=== PATIENT | female | born 1960 | race Caucasian/White ===

== ENCOUNTER 2018-04-29 15:00 | Emergency (ER) | payer OTHER ==
[2018-04-29 15:17] VITALS: TEMP 98.3; BMI 27.4
[2018-04-29] MEDS ORDERED: ONDANSETRON 4 MG/2 ML VIAL ONE (15:21)
--- NOTE | 2018-04-29 15:21 | PDOC ---
History of Present Illness - General Chief Complaint: Syncope/Near Syncope Stated Complaint: VOMITING/SYNCOPE Time Seen by Provider: 04/29/18 15:21 Past History - Past Medical History Allergies/Adverse Reactions: Allergies Allergy/AdvReac Type Severity Reaction Status Date / Time No Known Allergies Allergy Verified 04/29/18 15:11 Home Medications: Ambulatory Orders Ranitidine HCl [Zantac] 150 mg PO HS 04/29/18 COPD: No GI Disorders: Yes (gerd) - Suicide/Smoking/Psychosocial Hx Smoking History: Never smoked Information on smoking cessation initiated: No Hx Alcohol Use: No Drug/Substance Use Hx: No Substance Use Type: None *Physical Exam - Vital Signs Last Vital Signs Temp Pulse Resp BP Pulse Ox 98.3 F 70 18 151/88 100 04/29/18 15:12 04/29/18 15:12 04/29/18 15:12 04/29/18 15:12 04/29/18 15:12
[2018-04-29] MEDS ORDERED: ONDANSETRON 4 MG/2 ML VIAL IVPUSH ONE (15:32)
[2018-04-29] MEDS ORDERED: SODIUM CHLORIDE 1,000 ML IV ONE (15:32)
[2018-04-29] MEDS ORDERED: FAMOTIDINE 20 MG/50 ML IVPB 20 MG/50 ML MG IVPB ONE ×2 (15:39→15:42)
[2018-04-29 15:42] LABS: BASO % 0.7 % (0-2.0); EOS % 1.2 % (0-4.5); HEMATOCRIT 39.1 % (32.4-45.2); HEMOGLOBIN 13.3 GM/dL (10.7-15.3); LYMPH % 47.5 % (8-40); MCH 30.5 pg (25.7-33.7); MCHC 33.9 g/dl (32.0-36.0); MEAN CELL VOLUME 89.7 fl (80-96); MEAN PLT VOLUME 8.5 fl (7.5-11.1); MONO % 7.5 % (3.8-10.2); NEUT % 43.1 % (42.8-82.8); PLATELET COUNT 267 K/MM3 (134-434); RBC 4.36 M/mm3 (3.60-5.2); RDW 13.6 % (11.6-15.6)
[2018-04-29 16:03] LABS: ANION GAP 7 MMOL/L (8-16); BILIRUBIN,TOTAL 0.4 mg/dL (0.2-1.0); BLOOD UREA NITROGEN 17 mg/dL (7-18); CALCIUM 8.9 mg/dL (8.5-10.1); CHLORIDE 108 mmol/L (98-107); CO2 27 mmol/L (21-32); CREATININE 0.9 mg/dL (0.55-1.02); GLUCOSE,RANDOM 102 mg/dL (74-106); LIPASE 56 U/L (73-393); POTASSIUM 3.4 mmol/L (3.5-5.1); SGOT/AST 22 U/L (15-37); SGPT/ALT 27 U/L (12-78); SODIUM 142 mmol/L (136-145); TOT PROT 7.4 g/dl (6.4-8.2)
[2018-04-29 16:06] LABS: ALK PHOS 86 U/L (45-117)
--- NOTE | 2018-04-29 16:16 | PDOC ---
History of Present Illness - General Chief Complaint: Syncope/Near Syncope Stated Complaint: VOMITING/SYNCOPE Time Seen by Provider: 04/29/18 15:21 History Source: Patient Exam Limitations: No Limitations - History of Present Illness Initial Comments: 04/29/18 16:10 Patient is a 57F with history of GERD here today complaining of passing out. Patient states that she went out to lunch with family today when she started feeling nauseated and not well. Patient walked outside where she started feeling week and leaned on her . She then lost consciousness and was lowered to the ground by her . Patient's family reports no head trauma or seizure activity. She became conscious in less than a minute and had no post- ictal period. Endorses nausea, an episode of vomiting. Denies chest pain, shortness of breath, abdominal pain. Past History - Past Medical History Allergies/Adverse Reactions: Allergies Allergy/AdvReac Type Severity Reaction Status Date / Time No Known Allergies Allergy Verified 04/29/18 15:11 Home Medications: Ambulatory Orders Ranitidine HCl [Zantac] 150 mg PO HS 04/29/18 COPD: No GI Disorders: Yes (gerd) - Suicide/Smoking/Psychosocial Hx Smoking History: Never smoked Information on smoking cessation initiated: No Hx Alcohol Use: No Drug/Substance Use Hx: No Substance Use Type: None Review of Systems - Review of Systems Comments:: 04/29/18 16:13 GENERAL/CONSTITUTIONAL: No fever or chills. No weakness. HEAD, EYES, EARS, NOSE AND THROAT: No change in vision. No ear pain or discharge. No sore throat. CARDIOVASCULAR: No chest pain or shortness of breath RESPIRATORY: No cough, wheezing, or hemoptysis. GASTROINTESTINAL: +nausea, +vomiting. No diarrhea or constipation. GENITOURINARY: No dysuria, frequency, or change in urination. MUSCULOSKELETAL: No joint or muscle swelling or pain. No neck or back pain. SKIN: No rash NEUROLOGIC: No headache, vertigo, +loss of consciousness. ENDOCRINE: No increased thirst. No abnormal weight change HEMATOLOGIC/LYMPHATIC: No anemia, easy bleeding, or history of blood clots. ALLERGIC/IMMUNOLOGIC: No hives or skin allergy. *Physical Exam - Vital Signs Last Vital Signs Temp Pulse Resp BP Pulse Ox 98.3 F 70 18 151/88 99 04/29/18 15:12 04/29/18 15:12 04/29/18 15:12 04/29/18 15:12 04/29/18 15:35 - Physical Exam Comments: 04/29/18 16:14 GENERAL: Awake, alert, and fully oriented, in no acute distress HEAD: No signs of trauma, normocephalic, atraumatic EYES: PERRLA, EOMI, sclera anicteric, conjunctiva clear ENT: Auricles normal inspection, hearing grossly normal, nares patent, oropharynx clear without exudates. Moist mucosa NECK: Normal ROM, supple, no lymphadenopathy, JVD, or masses LUNGS: No distress, speaks full sentences, clear to auscultation bilaterally HEART: Regular rate and rhythm, normal S1 and S2, no murmurs, rubs or gallops, peripheral pulses normal and equal bilaterally. ABDOMEN: Soft, nontender, normoactive bowel sounds. No guarding, no rebound. No masses EXTREMITIES: Normal inspection, Normal range of motion, no edema. No clubbing or cyanosis. NEUROLOGICAL: Cranial nerves II through XII grossly intact. Normal speech, no focal sensorimotor deficits SKIN: Warm, Dry, normal turgor, no rashes or lesions noted. ED Treatment Course - LABORATORY CBC & Chemistry Diagram: 04/29/18 15:30 04/29/18 15:30 - ADDITIONAL ORDERS Additional order review: 04/29/18 15:30 RBC 4.36 MCV 89.7 MCHC 33.9 RDW 13.6 MPV 8.5 Neutrophils % 43.1 Lymphocytes % 47.5 H Monocytes % 7.5 Eosinophils % 1.2 Basophils % 0.7 - Medications Given in the ED: ED Medications Discontinued Medications Generic Name Dose Route Start Last Admin Trade Name Freq PRN Reason Stop Dose Admin Famotidine/Sodium Chloride 20 mg in 50 mls @ 100 mls/hr 04/29/18 15:39 15:44 Pepcid 20 Mg Premixed Ivpb - IVPB 04/29/18 16:08 100 mls/hr ONCE ONE Administration Ondansetron HCl 4 mg 04/29/18 15:32 04/29/18 15:32 Zofran Injection IVPUSH 04/29/18 15:33 4 mg NOW ONE Administration Medical Decision Making - Medical Decision Making 04/29/18 16:14 Patient is a 57F with history of GERD here today with syncope. Vital signs normal and stable. DDx includes, but is not limited to: arrhythmia, vasovagal, gastritis, dehydration, metabolic derangement. Patient has follow up available. Given fluids, zofran, pepcid. EKG shows normal sinus rhythm with rate of 69. No st elevations/depressions. No significant t wave morphologies. Normal intervals. Normal axis. CXR shows no acute cardiopulmonary processes. 04/29/18 16:42 Labs wnl, reassessed. Feeling better. Will follow up with PCP. Given return precautions. *DC/Admit/Observation/Transfer Diagnosis at time of Disposition: Syncope - Discharge Dispostion Disposition: HOME Condition at time of disposition: Good Decision to Admit order: No - Referrals Referrals: Mayur Short MD [Staff Physician] - - Patient Instructions Printed Discharge Instructions: DI for Syncope in Adults (Fainting) Additional Instructions: Please follow up with your primary care doctor this week. Please return if you have any new, worsening or concerning symptoms. - Post Discharge Activity
--- NOTE | 2018-04-29 16:29 | PDOC ---
Attending Attestation - Resident Resident Name: TeddyGlynn coreas - HPI HPI: 04/29/18 16:21 Pt presents to the ED complaining of syncope today. Patient was in her usual state of health until eating lunch today when she became nauseated and lightheaded. Patient syncopized and was lowered to the ground by her . She did not hit her head. On awakening, patient was alert and oriented but vomited. Now feels better and has no complaints. - Physicial Exam PE: 04/29/18 16:24 agree with resident exam. Patient is alert and oriented and in no acute distress. She is slightly pale. Lungs are clear b/l. CV: rrr no m/r/g. Pulm : CTA b/l. Abdomen soft, non tender non distended with no guarding or rebound. - Medical Decision Making 04/29/18 16:26 Pt presents to the ED complaining of an episode of syncope followed by an episode of vomiting. EKG is normal and patient has no risk factors for cardiovascular disease. No symptoms suggestive of seizure. Recent admission for syncope with negative work up at [facility]. Will check labs and cardiac enzymes and reassess. Syncope is unlikely to be cardiac. Will likely discharge home if labs are within normal limits.
[2018-04-29 16:53] VITALS: BP 157/87; PULSE 78
--- NOTE | 2018-04-30 13:23 | EKG ---
Test Reason : Blood Pressure : / mmHG Vent. Rate : 069 BPM Atrial Rate : 069 BPM P-R Int : 164 ms QRS Dur : 090 ms QT Int : 396 ms P-R-T Axes : 044 007 018 degrees QTc Int : 424 ms NORMAL SINUS RHYTHM NORMAL ECG NO PREVIOUS ECGS AVAILABLE Confirmed by PRASHANTH HOLDER MD ([id number]) on 04/30/2018 1:23:01 PM Referred By: Confirmed By:PRASHANTH HOLDER MD
== END 2018-04-29 16:52 | disposition home or self-care (01) ==
LOC: JER 15:00
PROC: 3E033GC Introduction of Other Therapeutic Substance into Peripheral Vein, Percutaneous Approach (ICD-10-PCS; principal; 2018-04-29)
PROC: 3E033GC Introduction of Other Therapeutic Substance into Peripheral Vein, Percutaneous Approach (ICD-10-PCS; 2018-04-29)
DX: R11.2 Nausea with vomiting, unspecified (principal)
CPT/HCPCS: 36415; 71045-TC-FY; 80053; 82550; 82553; 83690; 84484; 85025; 93005; 93010; 96365; 96375; 99285-25; J7030